=== PATIENT | male | born 1980 | race Caucasian/White ===

== ENCOUNTER 2017-05-09 09:26 | Day surgery (SDC) | payer OTHER ==
[~2017-05-09] VITALS: Ht 188 cm; Wt 153.8 kg
[2017-05-09] VITALS (10 sets, daily range): BP systolic 138–164; BP diastolic 78–98; PULSE 62–87; RESP 12–23; Ht 188 cm; Wt 153.8 kg
[~2017-05-09 09:26] MED LIST: CEFAZOLIN 1 GM INJ ONE; CEFAZOLIN 2 GM/50 ML (PMX) 50 ML IVPB SCH; SOD CHLORIDE 0.9% 1,000 ML IV SCH; SUCCINYLCHOLINE CHLORIDE 100 MG/5 ML SYG IV ONE
[2017-05-09] MEDS ORDERED: AMLO-147 PO (10:08)
[2017-05-09 11:05] LABS: CREATININE 1.04 mg/dl (0.61-1.24); POTASSIUM 4.5 mmol/L (3.5-5.1)
[2017-05-09] MEDS ORDERED: BUPIVACAINE 0.25% (MPF) 30 ML INJ ONE (11:57)
[2017-05-09] MEDS ORDERED: MIDAZOLAM 1 MG/ML 2 ML INJ ONE (12:14)
[2017-05-09] MEDS ORDERED: METOCLOPRAMIDE 10 MG INJ ONE (12:14)
[2017-05-09] MEDS ORDERED: FENTAnyl 50 MCG/ML VIAL ONE (12:15)
[2017-05-09] MEDS ORDERED: ROPIVACAINE 0.5 % 30 ML VIAL ONE (12:17)
[2017-05-09] MEDS ORDERED: ROCURONIUM 50 MG INJ ONE ×2 (12:31→12:49)
[2017-05-09] MEDS ORDERED: PROPOFOL 20 ML ONE (12:31)
[2017-05-09] MEDS ORDERED: KETOROLAC 30 MG INJ ONE (12:52)
[2017-05-09] MEDS ORDERED: ONDANSETRON 4 MG INJ IV PRN (13:00)
[2017-05-09] MEDS ORDERED: HYDROmorphONE (0.2 MG/ML) 10ML SYG IV PRN ×3 (13:00)
[2017-05-09] MEDS ORDERED: METOCLOPRAMIDE 10 MG INJ IV PRN (13:00)
[2017-05-09] MEDS ORDERED: OXYCODONE/ACETAMINOPHEN (5/325) TAB PO PRN ×2 (13:00)
[2017-05-09] MEDS ORDERED: DIPHENHYDRAMINE 50 MG INJ IV PRN (13:00)
[2017-05-09] MEDS ORDERED: MEPERIDINE 25 MG INJ IV PRN (13:00)
[2017-05-09] MEDS ORDERED: NEOSTIGMINE 3 MG/3 ML SYRINGE ONE (13:08)
[2017-05-09] MEDS ORDERED: GLYCOPYRROLATE 0.4 MG INJ ONE (13:08)
[2017-05-09] MEDS ORDERED: METOPROLOL 5 MG INJ ONE (13:19)
--- NOTE | 2017-05-09 13:24 | SIPON ---
Date/Time of Note Date/Time of Note DATE: 05/09/17 TIME: 13:23 Operative Report Preoperative Diagnosis symptomatic gallstones Postoperative Diagnosis same Operation/Procedure Performed laparoscopic cholecystectomy therapeutic injection of subcutaneous local anesthesia Surgeon see signature line registrar assistant none Anesthesia: general Estimated blood loss: 0 - 10 ml's Transfusion Required none Specimen gallbladder Grafts/Implants none Complications none Samuel VELASQUEZ May 09, 2017 13:24
[2017-05-09] MEDS ORDERED: HYDROCODONE/APAP (5/325) TAB PO ONE (13:30)
--- NOTE | 2017-05-10 10:30 | OPR ---
DATE OF OPERATION: 05/09/2017 INDICATION: This is a 36-year-old male who has morbid obesity and symptomatic gallstones. He reque sts surgical excision of his gallbladder. Risks, alternatives, benefits, and personnel were discuss ed with the patient. The patient expresses understanding and consents to the operation. PREOPERATIVE DIAGNOSIS: Symptomatic gallstones. POSTOPERATIVE DIAGNOSIS: Symptomatic gallstones. OPERATION: 1. Laparoscopic cholecystectomy. 2. Therapeutic subcutaneous injection of local anesthesia. SURGEON: Chelsy Beebe MD SPECIMENS: Gallbladder. COMPLICATIONS: None. ANESTHESIA: General. ESTIMATED BLOOD LOSS: 10 mL. DESCRIPTION OF PROCEDURE: The patient was taken to the OR and prepped and draped in the usual steri le fashion. A surgical timeout was performed. IV antibiotics were given. Infraumbilical transvers e incision is made with a 15 blade. Dissection cautery was carried down to the fascia, which was gr asped with Kochers and divided with curved Sethi scissors. An 0 Vicryl U-stitch was placed in the fa scia. Balloon Carlos trocar was introduced. Pneumoperitoneum was established. Midepigastric 12-mm optical trocar was placed under direct visualization. Right upper quadrant and right upper flank 5 mm optical trocars placed under direct visualization. Upon initial inspection, there were some adh esions to the gallbladder. These were taken down bluntly. The gallbladder was grasped and retracte d in a lateral and outward direction. This allowed visualization of the cystic duct. Lateral diss ection with hook cautery was initiated to carefully dissect out the cystic duct. The critical view was established. The cystic duct was divided with 3 clips proximal, 1 clip distal. This was divide d with scissors. The cystic artery was divided with 3 clips proximal, 1 clip distal. The gallbladd er was taken off the gallbladder bed. There was good hemostasis. The gallbladder is retrieved usin g an EndoCatch bag. Ports were removed under direct visualization. An 0 Vicryl U-stitch was tied d own to close the infraumbilical fascial incision. The skin was closed using skin telma. Therapeu tic subcutaneous local anesthesia was injected throughout the port sites. Dry dressings were applie d. Dictated By: CHELSY BAUMANN/MONCHO Conf#: [id number] DID#: [id number]
== END 2017-05-09 15:10 | disposition home or self-care (01) ==
LOC: SDS 09:26
PROVIDERS: ATTEND Surgery
DX: K80.10 Calculus of gallbladder with chronic cholecystitis without obstruction (principal); E66.01 Morbid (severe) obesity due to excess calories; Z68.41 Body mass index [BMI] 40.0-44.9, adult; I10 Essential (primary) hypertension
CPT/HCPCS: 47600; 80048; 88304; J0690; J1170; J1885; J2250; J2710; J2765; J2795; J3010; Z7512; Z7610